=== PATIENT | male | born 1950 | race Caucasian/White ===

== ENCOUNTER 2024-02-21 03:52 | Emergency (ER) | payer OTHER ==
[~2024-02-21] VITALS: Ht 190.5 cm; Wt 90.7 kg
[2024-02-21 04:28] LABS: BASOPHILS ABSOLUTE AUTO 0.08 K/mm3 (0.00-0.23); BASOPHILS PERCENT AUTO 1 % (0-2); EOSINOPHILS PERCENT AUTO 3 % (0-6); Hematocrit 40.9 % (37.0-53.0); IMMATURE GRAN ABSOLUTE AUTO 0.01 K/mm3 (0.00-0.10); IMMATURE GRAN PERCENT AUTO 0 % (0-1); LYMPHOCYTES ABSOLUTE AUTO 2.17 K/mm3 (0.84-5.20); LYMPHOCYTES PERCENT AUTO 31 % (21-46); MONOCYTES ABSOLUTE AUTO 0.61 K/mm3 (0.16-1.47); MONOCYTES PERCENT AUTO 9 % (4-13); Mean Corpuscular HGB 30.1 pg (26.0-34.0); Mean Corpuscular HGB Conc 34.2 g/dL (31.5-36.5); Mean Corpuscular Volume 88 fL (80-100); Mean Platelet Volume 8.9 fL (9.1-12.4); NEUTROPHILS ABSOLUTE AUTO 3.84 K/mm3 (1.96-9.15); NEUTROPHILS PERCENT AUTO 56 % (41-73); Platelet Count 252 K/mm3 (150-400); RDW Coefficient Variation 13.3 % (11.7-14.2); RDW Standard Deviation 42.9 fL (35.1-46.3); Red Blood Cell Count 4.65 M/mm3 (4.30-5.90); White Blood Cell Count 6.91 K/mm3 (4.00-11.30)
[2024-02-21 04:39] LABS: Albumin, Blood 3.9 g/dL (3.4-5.0); Albumin/Globulin Ratio 1.2 (0.8-1.8); Bilirubin, Total 0.7 mg/dL (0.1-1.0); Bun/Creatinine Ratio 19.6 (12.0-20.0); Calcium, Blood 8.8 mg/dL (8.5-10.1); Creatinine, Blood 1.02 mg/dL (0.60-1.20); Globulin, Blood 3.3 g/dL (2.2-4.0); Potassium, Blood 3.5 mmol/L (3.5-5.5); Total Protein, Blood 7.2 g/dL (6.4-8.2)
[2024-02-21] MEDS ORDERED: Acetaminophen 500 MG Tab PO ONE (05:05)
[2024-02-21] MEDS ORDERED: Ketorolac Tromethamine 30mg Vial IV ONE (05:05)
[2024-02-21] MEDS ORDERED: STIOLTO RESPIMAT4 G1 IH (05:20)
[2024-02-21] MEDS ORDERED: Ventolin5 MG/1 ML INH (05:20)
[2024-02-21] MEDS ORDERED: ZYRTEC10 M2 PO (05:22)
[2024-02-21] MEDS ORDERED: HYDCHL25 PO (05:22)
[2024-02-21] MEDS ORDERED: ATOR80 PO (05:23)
[2024-02-21] MEDS ORDERED: OMEP20ER PO (05:23)
== END 2024-02-21 05:55 | disposition home or self-care (01) ==
LOC: ER 03:52
PROVIDERS: Emergency Medicine
DX: S13.9XXA Sprain of joints and ligaments of unspecified parts of neck, initial encounter (principal); J44.9 Chronic obstructive pulmonary disease, unspecified; V89.2XXA Person injured in unspecified motor-vehicle accident, traffic, initial encounter
CPT/HCPCS: 70450; 72125; 80053; 85025; 93005; 93010; 96374; 99285-25; A9270; J1885